=== PATIENT | male | born 1950 | race Caucasian/White ===

== ENCOUNTER 2019-12-21 14:38 | Outpatient (CLI) | payer OTHER, SELFPAY ==
--- NOTE | ~2019-12-21 | CT_ITS ---
EXAMINATION: CT lung screening EXAM DATE: 12/21/2019 15:12 INDICATION: Personal history of nicotine dependence. TECHNIQUE: Spiral low dose CT of the chest without contrast. Axial, coronal and sagittal images were reviewed. The dose-length product (DLP) for this examination was 167.43 mGy-cm. The exposure was t ailored according to patient size (auto mA exposure control), and iterative reconstruction (ASIR) was used as additional dose reduction technique. Comparison is made to prior examination from 04/10/2017. FINDINGS: There is moderate to severe apical paraseptal emphysema, bullous disease, mild to moderate emphysema at the lower lung zones. There is mild basilar intralobular septal thickening, appearance suspicious for mild interstitial lung disease. 3 mm right upper lobe nodule on axial image 46, stable . Tracheobronchial tree is patent. There is no mediastinal, hilar or axillary lymphadenopathy. T here are no pleural or pericardial effusions. There is no pneumothorax. Heart normal in size. T here is moderate coronary arterial calcification, arterial sclerosis. Compared to 2018, slightly mor e prominent interlobular septal thickening at the lung bases. Upper abdomen is unremarkable. There is thoracic spondylosis without osteoblastic or osteolytic lesions identified. IMPRESSION: Lung-RADS category 2, benign appearance or behavior (<1% chance of malignancy); recommend continued LDCT screening in 1 year. Reviewed, dictated and finalized at location B.
== END 2019-12-21 14:39 | disposition home or self-care (01) ==
PROVIDERS: PCP Internal Medicine; Visit Provider Nurse Practitioner
DX: Z12.2 Encounter for screening for malignant neoplasm of respiratory organs (principal); Z87.891 Personal history of nicotine dependence
CPT/HCPCS: G0297

== ENCOUNTER 2020-09-05 09:27 | Outpatient (CLI) | payer OTHER, SELFPAY ==
--- NOTE | ~2020-09-05 | US_ITS ---
EXAMINATION:US venous doppler LE LT INDICATION:Left lower leg pain TECHNIQUE: Multiple grayscale, color flow and Doppler images of the left lower extremity deep venous systems were obtained and reviewed. COMPARISON:No prior studies for comparison. FINDINGS: The common femoral, superficial femoral and popliteal veins demonstrate normal respiratory variation, augmentation and compressibility. Color flow is also seen within the posterior tibial, pe roneal, greater saphenous and profunda veins. IMPRESSION: 1: No lower extremity deep venous thrombosis. Reviewed, dictated and finalized at location B.
== END 2020-09-05 09:28 | disposition home or self-care (01) ==
PROVIDERS: PCP Internal Medicine; Visit Provider Nurse Practitioner
DX: M79.662 Pain in left lower leg (principal)
CPT/HCPCS: 93971

== ENCOUNTER 2020-11-04 04:19 | Day surgery (SDC) | payer OTHER, SELFPAY ==
[2020-11-04] VITALS (7 sets, daily range): BP systolic 119–155; BP diastolic 55–79; PULSE 70–93; RESP 17–21; TEMP 36.3; O2SAT 98–100
[2020-11-04] MEDS: HYOSCYAMINE SULFATE 0.125 MG TABLET SUBLINGUAL (04:58)
--- NOTE | 2020-11-04 05:40 | ED.GENADULT ---
HPI - General Adult General Chief complaint: Unspecified Stated complaint: meat stuck in throat Time Seen by Provider: 11/04/20 04:36 History of Present Illness HPI narrative: Patient is a 69-year-old male who presents ER with meat stuck in his throat. He is eating a piece of steak that became lodged around 7 PM. He reports he will have difficulty with swallowing spit and spit it back up. He has been able to sip on some water and get go down if he has it in small increments. He feels discomfort in the center of his throat. He has had this occur routinely in the past but can typically dislodge the food bolus. He has been unable to at this time. He has never had an EGD. Related Data Allergies Allergy/AdvReac Type Severity Reaction Status Date / Time fentanyl Allergy Mild numbness Verified 11/04/20 04:24 morphine Allergy Mild Unknown Verified 11/04/20 04:24 PENTAZOCINE LACTATE Allergy Mild STOMACH Uncoded 09/05/20 08:24 PAIN Review of Systems Review of Systems: All systems reviewed & are unremarkable except as noted in HPI and below Constitutional: Constitutional: Denies chills and Denies fever(s) ENT: Reports dysphagia, Denies neck pain and Denies sore throat Gastrointestinal: Gastrointestinal: Denies abdominal pain, Denies nausea and Denies vomiting PMFSH Past Medical History Medical History Chronic kidney disease, stage 3 Fatigue Insomnia Family History Family History Father Family history of lung cancer Family history of diabetes mellitus in first degree relative Diabetes mellitus Patient's father is in good health, Onset Age: 64 Grandparent Family history of malignant neoplasm of breast Mother Family history of osteoporosis Family history of diabetes mellitus in first degree relative Diabetes mellitus Cerebrovascular accident Sibling Patient's brother is in good health Social History Social History Smoking packs per day: 2 Smoking cigarettes per day: 40.0 Smoking status: Current every day smoker Tobacco type: cigarettes Alcohol intake: never Exam Narrative: GENERAL: Well-appearing, well-nourished, and in no acute distress. HEAD: Normocephalic, atraumatic. EYES: PERRL and EOMI. ENT: Mucous membranes moist. Normal-appearing posterior oropharynx. CHEST: Clear to auscultation. No respiratory distress. HEART: Regular rate and rhythm. Normal peripheral pulses. ABDOMEN: Soft, nontender, nondistended. EXTREMITIES: Normal range of motion. No edema. NEURO: Alert and oriented x3. Course Reevaluation(s) Reevaluation #1: No improvement with Levsin or Pepsi. Will contact GI. Date: 11/04/20 Time: 05:50 Reevaluation #2: Discussed with Dr. Doyle Dejesus. He plans to take patient to the endoscopy suite. We will keep n.p.o. Date: 11/04/20 Time: 06:17 Vital Signs Vital signs: Vital Signs Temperature 97.4 F L 11/04/20 04:21 Pulse Rate 93 11/04/20 04:21 Respiratory Rate 18 11/04/20 04:21 Blood Pressure 155/64 H 11/04/20 04:21 Pulse Oximetry 98 11/04/20 04:21 Temperature 97.4 F L 11/04/20 04:21 Pulse Rate 80 11/04/20 06:06 Respiratory Rate 17 11/04/20 06:06 Blood Pressure 139/79 11/04/20 06:06 Pulse Oximetry 100 11/04/20 06:06 Medical Decision Making Vital Signs Vital Signs: Vital Signs Temperature 97.4 F L 11/04/20 04:21 Pulse Rate 93 11/04/20 04:21 Respiratory Rate 18 11/04/20 04:21 Blood Pressure 155/64 H 11/04/20 04:21 Pulse Oximetry 98 11/04/20 04:21 Temperature 97.4 F L 11/04/20 04:21 Pulse Rate 80 11/04/20 06:06 Respiratory Rate 17 11/04/20 06:06 Blood Pressure 139/79 11/04/20 06:06 Pulse Oximetry 100 11/04/20 06:06 Discharge Plan Discharge Clinical Impression: Food impaction of esophagus Patient Disposition: Still
--- NOTE | 2020-11-04 06:51 | WPDANESEPP ---
Anes - Eval Pre Procedure Procedure: EGD Date/Time: 11/04/20 06:51 Surgeon: parisa Pre Op Diagnosis: meat stuck in throat Patient Data Age: 69 Gender: M Height: Weight: Last Vital Signs Temp 36.3 C L 11/04/20 04:21 Pulse 80 11/04/20 06:06 Resp 17 11/04/20 06:06 BP 139/79 11/04/20 06:06 Pulse Ox 100 11/04/20 06:06 Allergies Allergy/AdvReac Type Severity Reaction Status Date / Time fentanyl Allergy Mild numbness Verified 11/04/20 04:24 morphine Allergy Mild Unknown Verified 11/04/20 04:24 PENTAZOCINE LACTATE Allergy Mild STOMACH Uncoded 09/05/20 08:24 PAIN Home Medications Medication Instructions Recorded Confirmed Type insulin syringes (disposable) 1 mL #500 each 07/04/20 09/05/20 Rx insulin human U-100 NPH-regulr See Rx Instructions .ROUTE 07/11/20 09/05/20 Rx 70-30 mix 100 unit/mL subcutaneous .COMPLEX #30 ml susp pregabalin 150 mg capsule 150 mg PO TID #90 cap 07/30/20 09/05/20 Rx blood sugar diagnostic #200 each 08/22/20 09/05/20 Rx cholecalciferol (vitamin D3) 1,250 1,250 mcg PO .COMPLEX #7 cap 09/05/20 09/05/20 Rx mcg (50,000 unit) capsule hydrocodone 10 mg-acetaminophen 1 tablet PO Q8H PRN #90 tablet 09/12/20 Rx 325 mg tablet alprazolam 0.5 mg tablet 0.5 mg PO .COMPLEX PRN #90 tablet 10/05/20 Rx Patient hx anesthesia problems: none Family hx anesthesia problems: none PMFSH Past Medical History Medical History Chronic kidney disease, stage 3 Fatigue Insomnia Family History Family History Father Family history of lung cancer Family history of diabetes mellitus in first degree relative Diabetes mellitus Patient's father is in good health, Onset Age: 64 Grandparent Family history of malignant neoplasm of breast Mother Family history of osteoporosis Family history of diabetes mellitus in first degree relative Diabetes mellitus Cerebrovascular accident Sibling Patient's brother is in good health Social History Social History Smoking packs per day: 2 Smoking cigarettes per day: 40.0 Smoking status: Current every day smoker Tobacco type: cigarettes Alcohol intake: never Exam Day of Procedure 11/04/20 06:51
[2020-11-04] MEDS: LACTATED RINGERS 1,000 ML 150 ML IV CONT (07:30)
--- NOTE | 2020-11-04 07:37 | PM.HPGS ---
History of Present Illness History of Present Illness Consent: Risks, benefits, and alternatives have been discussed and questions answered. Patient agrees to proceed with procedure. Chief complaint: meat stuck in throat Narrative: Rick Garzon is a 69 year old male here with history of dysphagia but never had egd, last night could not eat anymore after having a piece of steak. He came to ER and despite medical treatment still unable to swallow. Review of Systems Constitutional: Constitutional: Denies headache(s) and Denies weakness Eyes: Eyes: Denies blurry vision ENT: Reports Normal hearing present, Denies headache(s) and Denies neck pain Cardiovascular: Cardiovascular: Denies chest pain and Denies dyspnea Respiratory: Respiratory: Denies dyspnea Gastrointestinal: Gastrointestinal: Reports no additional gastrointestinal complaints Genitourinary: Genitourinary: Denies dysuria Musculoskeletal: Musculoskeletal: Denies neck pain Integumentary/Breasts: Skin/Breast: Denies dry skin Neurologic: Reports Normal hearing present, Denies headache(s) and Denies weakness Psychiatric: Psychiatric: Denies anxiety Endocrine: Endocrine: Denies change in body appearance Hematologic/Lymphatic: Hematologic/Lymphatic: Denies easy bleeding Allergic/Immunologic: Allergic/Immunologic: Denies urticaria PMFSH Past Medical History Medical History Chronic kidney disease, stage 3 Fatigue Insomnia Family History Family History Father Family history of lung cancer Family history of diabetes mellitus in first degree relative Diabetes mellitus Patient's father is in good health, Onset Age: 64 Grandparent Family history of malignant neoplasm of breast Mother Family history of osteoporosis Family history of diabetes mellitus in first degree relative Diabetes mellitus Cerebrovascular accident Sibling Patient's brother is in good health Social History Social History Smoking packs per day: 2 Smoking cigarettes per day: 40.0 Smoking status: Current every day smoker Tobacco type: cigarettes Alcohol intake: never Meds Home Medications and Allergies Home Medications Medication Instructions Recorded Confirmed Type insulin syringes (disposable) 1 mL #500 each 07/04/20 09/05/20 Rx insulin human U-100 NPH-regulr See Rx Instructions .ROUTE 07/11/20 09/05/20 Rx 70-30 mix 100 unit/mL subcutaneous .COMPLEX #30 ml susp pregabalin 150 mg capsule 150 mg PO TID #90 cap 07/30/20 09/05/20 Rx blood sugar diagnostic #200 each 08/22/20 09/05/20 Rx cholecalciferol (vitamin D3) 1,250 1,250 mcg PO .COMPLEX #7 cap 09/05/20 09/05/20 Rx mcg (50,000 unit) capsule hydrocodone 10 mg-acetaminophen 1 tablet PO Q8H PRN #90 tablet 09/12/20 Rx 325 mg tablet alprazolam 0.5 mg tablet 0.5 mg PO .COMPLEX PRN #90 tablet 10/05/20 Rx Allergies Allergy/AdvReac Type Severity Reaction Status Date / Time fentanyl Allergy Mild numbness Verified 11/04/20 07:37 morphine Allergy Mild Unknown Verified 11/04/20 07:37 PENTAZOCINE LACTATE Allergy Mild STOMACH Uncoded 11/04/20 07:37 PAIN Vital Signs Vital Signs - 24 hr 11/04/20 04:21 11/04/20 06:06 11/04/20 07:16 Temperature 97.4 F L Pulse Rate 93 80 80 Respiratory Rate 18 17 20 Blood Pressure 155/64 H 139/79 119/60 Pulse Oximetry 98 100 100 11/04/20 07:18 Temperature Pulse Rate 80 Respiratory Rate 20 Blood Pressure 119/60 Pulse Oximetry 100 Exam Const: General: comfortable and no acute distress HENMT: General nose exam: Normal nares present Eyes: General: appearance normal, both eyes and all related structures Neck: Neck: no JVD Resp: Auscultation: clear to auscultation bilaterally Cardio: Rate: regular rate Rhythm: regular rhythm GI: Inspection: non-distended GI Palp:
--- NOTE | 2020-11-04 07:48 | WPDANESEPPF ---
Anes - Initial Pre Proc Eval Procedure: Operation Date: 11/04/20 07:30 Proposed Procedures p Esophagogastroduodenoscopy/Stent Removal - Parrish Messina MD Date/Time: 11/04/20 07:48 Surgeon: Parrish Messina MD Pre Op Diagnosis: meat stuck in throat Patient Data Age: 69 Gender: M Height: Weight: Last Vital Signs Temp 36.3 C L 11/04/20 04:21 Pulse 80 11/04/20 07:18 Resp 20 11/04/20 07:18 BP 119/60 11/04/20 07:18 Pulse Ox 100 11/04/20 07:18 Allergies Allergy/AdvReac Type Severity Reaction Status Date / Time fentanyl Allergy Mild numbness Verified 11/04/20 07:37 morphine Allergy Mild Unknown Verified 11/04/20 07:37 PENTAZOCINE LACTATE Allergy Mild STOMACH Uncoded 11/04/20 07:37 PAIN Home Medications Medication Instructions Recorded Confirmed Type insulin syringes (disposable) 1 mL #500 each 07/04/20 11/04/20 Rx insulin human U-100 NPH-regulr See Rx Instructions .ROUTE 07/11/20 11/04/20 Rx 70-30 mix 100 unit/mL subcutaneous .COMPLEX #30 ml susp pregabalin 150 mg capsule 150 mg PO TID #90 cap 07/30/20 11/04/20 Rx blood sugar diagnostic #200 each 08/22/20 11/04/20 Rx cholecalciferol (vitamin D3) 1,250 1,250 mcg PO .COMPLEX #7 cap 09/05/20 11/04/20 Rx mcg (50,000 unit) capsule hydrocodone 10 mg-acetaminophen 1 tablet PO Q8H PRN #90 tablet 09/12/20 11/04/20 Rx 325 mg tablet alprazolam 0.5 mg tablet 0.5 mg PO .COMPLEX PRN #90 tablet 10/05/20 11/04/20 Rx Patient hx anesthesia problems: none Family hx anesthesia problems: none PMFSH Past Medical History Medical History Chronic kidney disease, stage 3 Fatigue Insomnia Family History Family History Father Family history of lung cancer Family history of diabetes mellitus in first degree relative Diabetes mellitus Patient's father is in good health, Onset Age: 64 Grandparent Family history of malignant neoplasm of breast Mother Family history of osteoporosis Family history of diabetes mellitus in first degree relative Diabetes mellitus Cerebrovascular accident Sibling Patient's brother is in good health Social History Social History Smoking packs per day: 2 Smoking cigarettes per day: 40.0 Smoking status: Current every day smoker Tobacco type: cigarettes Alcohol intake: never Anes - Eval Final PreProcedure Day of Procedure 11/04/20 07:48 Patient weight: normal Heart: regular rate and rhythm Lungs: clear to auscultation Airway: Mallampati scale class II Neurological: alert and oriented Last oral intake: >/= 8 hours ASA classification: IV Emergent: yes Anesthetic plan: proceed Anesthesia type and monitoring: general GIVS Informed Consent: The patient's anesthetic plan of GIVS with possible ETT and its attendant risks and benefits were discussed in the GI suite prior to the start of this emergent procedure with the patient.Questions were solicited and answers provided to the satisfaction of the patient.
[2020-11-04 08:34] LABS: Glucose Point of Care 104 mg/dl (65-105)
== END 2020-11-04 08:48 | disposition home or self-care (01) ==
LOC: ANHED 06:17 → ANHSURGERY 06:29
PROVIDERS: Emergency Provider Emergency Medicine; PCP Internal Medicine; Visit Provider Internal Medicine Gastroenterology
PROC: 0DP08DZ Removal of Intraluminal Device from Upper Intestinal Tract, Via Natural or Artificial Opening Endoscopic (ICD-10-PCS; CPT 43247; principal; 2020-11-04 07:30)
DX: T18.128A Food in esophagus causing other injury, initial encounter (principal); K29.50 Unspecified chronic gastritis without bleeding; K20.90 Esophagitis, unspecified without bleeding; E11.22 Type 2 diabetes mellitus with diabetic chronic kidney disease; N18.30 Chronic kidney disease, stage 3 unspecified; Z79.4 Long term (current) use of insulin; G25.81 Restless legs syndrome; F17.210 Nicotine dependence, cigarettes, uncomplicated; Z79.899 Other long term (current) drug therapy; X58.XXXA Exposure to other specified factors, initial encounter
CPT/HCPCS: 43239; 43247; 82948; 88305; 88342; 99285; A9270; J2704; J7120

== ENCOUNTER → 2020-12-22 00:26 | Outpatient (CLI) | payer OTHER, SELFPAY ==
[2020-12-22 18:06] LABS: SARS-CoV-2 RNA PCR Negative
== END ==
PROVIDERS: PCP Internal Medicine; Visit Provider Internal Medicine Gastroenterology
DX: Z01.812 Encounter for preprocedural laboratory examination (principal); Z20.822 Contact with and (suspected) exposure to COVID-19
CPT/HCPCS: C9803; U0003; U0005

== ENCOUNTER 2020-12-26 00:33 | Day surgery (SDC) | payer OTHER, SELFPAY ==
[2020-12-12 15:36] VITALS: BMI 28.6
[2020-12-26 08:27] VITALS: BP 122/53; PULSE 73; RESP 18; TEMP 36.4; O2SAT 99
[2020-12-26] MEDS: LACTATED RINGERS 1,000 ML 150 ML IV CONT (08:37)
--- NOTE | 2020-12-26 08:37 | WPDANESEPPF ---
Anes - Initial Pre Proc Eval Procedure: Operation Date: 12/26/20 09:30 Proposed Procedures p Esophagogastroduodenoscopy - Parrish Messina MD Date/Time: 12/26/20 08:37 Surgeon: Parrish Messina MD Pre Op Diagnosis: esophagitis, gastritis Patient Data Age: 70 Gender: M Height: 1.69 m Weight: 81.1 kg Last Vital Signs Temp 36.4 C 12/26/20 08:27 Pulse 73 12/26/20 08:27 Resp 18 12/26/20 08:27 BP 122/53 L 12/26/20 08:27 Pulse Ox 99 12/26/20 08:27 Allergies Allergy/AdvReac Type Severity Reaction Status Date / Time fentanyl Allergy Mild numbness Verified 12/26/20 08:26 morphine Allergy Mild Unknown Verified 12/26/20 08:26 Xlyuxjj-[id number]-VzM Reductase AdvReac Intermediate Muscle Pain Verified 12/26/20 08:26 Inhibitor [Atuzmnb-Ztm-Fzs Reductase Inhibitor] PENTAZOCINE LACTATE Allergy Mild STOMACH Uncoded 12/26/20 08:26 PAIN Home Medications Medication Instructions Recorded Confirmed Type insulin syringes (disposable) 1 mL #500 each 07/04/20 11/04/20 Rx insulin human U-100 NPH-regulr See Rx Instructions .ROUTE 07/11/20 12/12/20 Rx 70-30 mix 100 unit/mL subcutaneous .COMPLEX #30 ml susp pregabalin 150 mg capsule 150 mg PO TID #90 cap 07/30/20 12/12/20 Rx blood sugar diagnostic #200 each 08/22/20 11/04/20 Rx cholecalciferol (vitamin D3) 1,250 1,250 mcg PO .COMPLEX #7 cap 09/05/20 12/12/20 Rx mcg (50,000 unit) capsule omeprazole 20 mg capsule,delayed 20 mg PO DAILY #30 cap 11/04/20 12/12/20 Rx release alprazolam 0.5 mg tablet 0.5 mg PO TID #90 tablet 12/14/20 12/26/20 Rx hydrocodone 10 mg-acetaminophen 1 tablet PO Q8H PRN #90 tablet 12/20/20 12/26/20 Rx 325 mg tablet Patient hx anesthesia problems: none Family hx anesthesia problems: none Results Review: All pre-operative results and documents have been reviewed as part of the pre-operative evaluation. [facility] Past Medical History Medical History Anxiety disorder Chronic bilateral low back pain without sciatica Chronic kidney disease, stage 3 Chronic narcotic use Chronic prescription benzodiazepine use COPD (chronic obstructive pulmonary disease) Depression Diabetes mellitus Diabetic polyneuropathy associated with type 2 diabetes mellitus Essential (primary) hypertension Fatigue Fibromyalgia Hyperlipidemia Insomnia Mixed hyperlipidemia Restless leg syndrome Tobacco use Family History Family History Father Family history of lung cancer Family history of diabetes mellitus in first degree relative Diabetes mellitus Patient's father is in good health, Onset Age: 64 Grandparent Family history of malignant neoplasm of breast Mother Family history of osteoporosis Family history of diabetes mellitus in first degree relative Diabetes mellitus Cerebrovascular accident Sibling Patient's brother is in good health Social History Social History Smoking packs per day: 2 Smoking cigarettes per day: 40.0 Years smoked: 58 Smoking pack-years: 116.00 Smoking status: Current every day smoker Tobacco type: cigarettes Alcohol intake: never Substance use: current Substance use type: marijuana Other substance usage details: Medical marijuana at . Living arrangements: alone Spiritual care concerns: No Anes - Eval Final PreProcedure Day of Procedure 12/26/20 08:37 Patient weight: overweight Heart: regular rate and rhythm Lungs: clear to auscultation and normal air movement Airway: Mallampati scale class II Neurological: alert and oriented Last oral intake: >/= 8 hours ASA classification: III Emergent: no Anesthetic plan: proceed Anesthesia type and monitoring: general GIVS Results Review: All pre-operative results and documents have been reviewed as part of the pre-operative evaluation. Informed Consent: The patient's anesthetic plan an
[2020-12-26 08:41] LABS: Glucose Point of Care 121 mg/dl (65-105)
--- NOTE | 2020-12-26 09:20 | PM.HPGS ---
History of Present Illness History of Present Illness Consent: Risks, benefits, and alternatives have been discussed and questions answered. Patient agrees to proceed with procedure. Chief complaint: esophagitis, gastritis Narrative: Rick Garzon is a 70 year old male with food bolus 10/2020 that required urgent EGD, here to reassess (now using omeprazole), had one episode of difficulty swallowing. Also he needs denture Review of Systems Constitutional: Constitutional: Denies headache(s) and Denies weakness Eyes: Eyes: Denies blurry vision ENT: Reports Normal hearing present, Denies headache(s) and Denies neck pain Cardiovascular: Cardiovascular: Denies chest pain and Denies dyspnea Respiratory: Respiratory: Denies dyspnea Gastrointestinal: Gastrointestinal: Reports no additional gastrointestinal complaints Genitourinary: Genitourinary: Denies dysuria Musculoskeletal: Musculoskeletal: Denies neck pain Integumentary/Breasts: Skin/Breast: Denies dry skin Neurologic: Reports Normal hearing present, Denies headache(s) and Denies weakness Psychiatric: Psychiatric: Denies anxiety Endocrine: Endocrine: Denies change in body appearance Hematologic/Lymphatic: Hematologic/Lymphatic: Denies easy bleeding Allergic/Immunologic: Allergic/Immunologic: Denies urticaria PMFSH Past Medical History Medical History Anxiety disorder Chronic bilateral low back pain without sciatica Chronic kidney disease, stage 3 Chronic narcotic use Chronic prescription benzodiazepine use COPD (chronic obstructive pulmonary disease) Depression Diabetes mellitus Diabetic polyneuropathy associated with type 2 diabetes mellitus Dysphagia Essential (primary) hypertension Fatigue Fibromyalgia Hyperlipidemia Insomnia Mixed hyperlipidemia Restless leg syndrome Tobacco use Family History Family History Father Family history of lung cancer Family history of diabetes mellitus in first degree relative Diabetes mellitus Patient's father is in good health, Onset Age: 64 Grandparent Family history of malignant neoplasm of breast Mother Family history of osteoporosis Family history of diabetes mellitus in first degree relative Diabetes mellitus Cerebrovascular accident Sibling Patient's brother is in good health Social History Social History Smoking packs per day: 2 Smoking cigarettes per day: 40.0 Years smoked: 58 Smoking pack-years: 116.00 Smoking status: Current every day smoker Tobacco type: cigarettes Alcohol intake: never Substance use: current Substance use type: marijuana Other substance usage details: Medical marijuana at . Living arrangements: alone Spiritual care concerns: No Meds Home Medications and Allergies Home Medications Medication Instructions Recorded Confirmed Type insulin syringes (disposable) 1 mL #500 each 07/04/20 11/04/20 Rx insulin human U-100 NPH-regulr See Rx Instructions .ROUTE 07/11/20 12/12/20 Rx 70-30 mix 100 unit/mL subcutaneous .COMPLEX #30 ml susp pregabalin 150 mg capsule 150 mg PO TID #90 cap 07/30/20 12/12/20 Rx blood sugar diagnostic #200 each 08/22/20 11/04/20 Rx cholecalciferol (vitamin D3) 1,250 1,250 mcg PO .COMPLEX #7 cap 09/05/20 12/12/20 Rx mcg (50,000 unit) capsule omeprazole 20 mg capsule,delayed 20 mg PO DAILY #30 cap 11/04/20 12/12/20 Rx release alprazolam 0.5 mg tablet 0.5 mg PO TID #90 tablet 12/14/20 12/26/20 Rx hydrocodone 10 mg-acetaminophen 1 tablet PO Q8H PRN #90 tablet 12/20/20 12/26/20 Rx 325 mg tablet Allergies Allergy/AdvReac Type Severity Reaction Status Date / Time fentanyl Allergy Mild numbness Verified 12/26/20 08:26 morphine Allergy Mild Unknown Verified 12/26/20 08:26 Zssirps-YQJ-QyM Reductase AdvReac Intermediate Muscle Pain Verified 12/26/20 08:26 Inhibitor [Xdrkqce-Brd-Rkr Reductas
[2020-12-26] MEDS: BENZOCAINE (*SP) 60 ML SPRAY CAN (HURRICAINE) 1 SPRAY MUCOUS MEM (09:24)
[2020-12-26 09:39] VITALS: BP 106/49; PULSE 58; RESP 17; O2SAT 100
[2020-12-26 09:49] VITALS: BP 105/56; PULSE 62; RESP 25; O2SAT 100
[2020-12-26 09:58] LABS: Glucose Point of Care 116 mg/dl (65-105)
[2020-12-26 09:59] VITALS: BP 124/69; PULSE 64; RESP 24; O2SAT 100
== END 2020-12-26 10:15 | disposition home or self-care (01) ==
PROVIDERS: PCP Internal Medicine; Visit Provider Internal Medicine Gastroenterology
PROC: 0DJ08ZZ Inspection of Upper Intestinal Tract, Via Natural or Artificial Opening Endoscopic (ICD-10-PCS; CPT 43235; principal; 2020-12-26 09:30)
DX: R13.10 Dysphagia, unspecified (principal); K29.50 Unspecified chronic gastritis without bleeding; K20.80 Other esophagitis without bleeding; K02.9 Dental caries, unspecified; I12.9 Hypertensive chronic kidney disease with stage 1 through stage 4 chronic kidney disease, or unspecified chronic kidney disease; N18.30 Chronic kidney disease, stage 3 unspecified; E11.22 Type 2 diabetes mellitus with diabetic chronic kidney disease; E11.42 Type 2 diabetes mellitus with diabetic polyneuropathy; J44.9 Chronic obstructive pulmonary disease, unspecified; M79.7 Fibromyalgia; E78.2 Mixed hyperlipidemia; G25.81 Restless legs syndrome; F41.8 Other specified anxiety disorders; F17.210 Nicotine dependence, cigarettes, uncomplicated; Z79.4 Long term (current) use of insulin; F12.90 Cannabis use, unspecified, uncomplicated
CPT/HCPCS: 43239; 43248; 82948; 88305; 88342; C9803; J7120; U0003; U0005

== ENCOUNTER 2020-12-28 16:41 | Emergency (ER) | payer OTHER, SELFPAY ==
[2020-12-28 16:52] VITALS: BP 130/57; PULSE 76; RESP 20; TEMP 36.4; O2SAT 99
[2020-12-28 16:54] VITALS: BP 130/57; PULSE 76; RESP 20; TEMP 36.4; O2SAT 99
--- NOTE | 2020-12-28 17:04 | ED.EAR ---
HPI - Ear Problem General Chief complaint: Ear Stated complaint: ears clogged Time Seen by Provider: 12/28/20 17:05 Source: patient Mode of arrival: ambulatory Limitations: no limitations History of Present Illness HPI Narrative: Rick Garzon is a 70 yo male with a PMH of anxiety, HTN, high cholesterol, diabetes, chronic pain, GERD, who comes here with difficulty hearing out of his left ear and some on his right. States is been going on for a few days. He cannot remember what the name is that said was useful for this problem Related Data Allergies Allergy/AdvReac Type Severity Reaction Status Date / Time fentanyl Allergy Mild numbness Verified 12/28/20 16:51 morphine Allergy Mild Unknown Verified 12/28/20 16:51 Zctfjqb-NKK-IzL Reductase AdvReac Intermediate Muscle Pain Verified 12/28/20 16:51 Inhibitor [Qzlgqma-Pjd-Cyj Reductase Inhibitor] PENTAZOCINE LACTATE Allergy Mild STOMACH Uncoded 12/28/20 16:51 PAIN Review of Systems Review of Systems: CONSTITUTIONAL: Denies fever, chills, sweats. EYES: Denies visual changes, redness, discharge. ENT: Denies rhinorrhea, congestion, sore throat, bilateral otalgia. CARDIOVASCULAR: Denies chest pain, palpitations, edema. RESPIRATORY: Denies dyspnea, wheezing, cough GASTROINTESTINAL: Denies abdominal pain, nausea, vomiting, diarrhea. GENITOURINARY: Denies dysuria, hematuria, abnormal discharge SKIN: Denies rash or itching. NEUROLOGIC: Denies numbness, or focal weakness. PSYCHIATRIC: Denies anxiety or depression. PMFSH Past Medical History Medical History Anxiety disorder Chronic bilateral low back pain without sciatica Chronic kidney disease, stage 3 Chronic narcotic use Chronic prescription benzodiazepine use COPD (chronic obstructive pulmonary disease) Depression Diabetes mellitus Diabetic polyneuropathy associated with type 2 diabetes mellitus Dysphagia Essential (primary) hypertension Fatigue Fibromyalgia Hyperlipidemia Insomnia Mixed hyperlipidemia Restless leg syndrome Tobacco use Family History Family History Father Family history of lung cancer Family history of diabetes mellitus in first degree relative Diabetes mellitus Patient's father is in good health, Onset Age: 64 Grandparent Family history of malignant neoplasm of breast Mother Family history of osteoporosis Family history of diabetes mellitus in first degree relative Diabetes mellitus Cerebrovascular accident Sibling Patient's brother is in good health Social History Social History Smoking packs per day: 2 Smoking cigarettes per day: 40.0 Years smoked: 58 Smoking pack-years: 116.00 Smoking status: Current every day smoker Tobacco type: cigarettes Alcohol intake: never Substance use: current Substance use type: marijuana Other substance usage details: Medical marijuana at . Spiritual care concerns: No Comments At time of signature, I agree with nursing past medical, surgical, social and family history. There is no relevant family history pertinent to the presenting complaint. Patient has history of HTN Exam Narrative: GENERAL: This is a well-nourished, well-developed patient, in mild distress. HEAD: normocephalic, atraumatic. EYES: Sclera clear/white. Vision is grossly intact. EARS: External ears normal, auditory canals erythema, edema and left canal, and without drainage, TMs normal without perforation. Hearing grossly intact. NOSE: External nose normal without nasal discharge, nares without redness, no rhinorrhea. THROAT: Mucous membranes moist, NECK: Neck supple, CARDIOVASCULAR: Regular rate and rhythm without murmurs, gallops, or rubs. RESPIRATORY: Clear to auscultation. Breath sounds equal bilaterally. No wheezes, rales, or rhonchi. GASTROINTESTINAL: Abdomen soft, SKIN: warm, intact with no suspicious lesions or r
== END 2020-12-28 17:28 | disposition home or self-care (01) ==
PROVIDERS: Emergency Provider Nurse Practitioner; PCP Internal Medicine
DX: H92.02 Otalgia, left ear (principal); H66.003 Acute suppurative otitis media without spontaneous rupture of ear drum, bilateral; F17.210 Nicotine dependence, cigarettes, uncomplicated; I12.9 Hypertensive chronic kidney disease with stage 1 through stage 4 chronic kidney disease, or unspecified chronic kidney disease; E11.22 Type 2 diabetes mellitus with diabetic chronic kidney disease; N18.30 Chronic kidney disease, stage 3 unspecified; J44.9 Chronic obstructive pulmonary disease, unspecified; E11.42 Type 2 diabetes mellitus with diabetic polyneuropathy; M79.7 Fibromyalgia; E78.2 Mixed hyperlipidemia; G25.81 Restless legs syndrome; F41.9 Anxiety disorder, unspecified; Z79.4 Long term (current) use of insulin
CPT/HCPCS: 99213; G0463

== ENCOUNTER → 2021-02-02 07:51 | Outpatient (CLI) | payer OTHER, SELFPAY ==
[2021-02-02 18:14] LABS: SARS-CoV-2 RNA PCR Negative
== END ==
PROVIDERS: PCP Internal Medicine
DX: Z01.812 Encounter for preprocedural laboratory examination (principal); Z20.822 Contact with and (suspected) exposure to COVID-19
CPT/HCPCS: C9803; U0003; U0005

== ENCOUNTER 2022-12-11 13:31 | Inpatient (IN) | payer OTHER, SELFPAY ==
[2022-12-11] VITALS (23 sets, daily range): BP systolic 122–150; BP diastolic 57–66; PULSE 80–99; RESP 16–32; TEMP 35.9–36.7; O2SAT 88–100; BMI 20.4
--- NOTE | ~2022-12-11 | XR_ITS ---
EXAMINATION: XR chest 1V portable INDICATION: Coarse lung zones TECHNIQUE: Portable AP chest at 2246 hours COMPARISON: CTs dated 12/21/2019 and 12/11/2022 FINDINGS: There are confluent airspace opacities in the lung apices with areas of cavitation. No pleu ral effusion is identified. The heart size is normal. IMPRESSION: 1. Multifocal cavitary pneumonia of the lung apices. Reviewed, dictated and finalized at location F.
--- NOTE | ~2022-12-11 | CT_ITS ---
EXAMINATION: CTA BRAIN/CAROTID DATE: 12/11/2022 14:31 INDICATION: Right-sided weakness TECHNIQUE: Computed tomographic angiography (CTA) of the head and neck was performed with 100 mL Omni paque-350 intravenous contrast. Multiplanar reconstructions and maximum intensity projection 3D-recon structions of the carotid arteries and of the intracranial arteries were created by the technologist on a separate workstation. Precontrast CT of the head was also obtained. Automated exposure control and iterative reconstruction technique were employed.The dose-length product was 1847.65 mGy-cm. COMPARISON: None. FINDINGS: Carotid arteries: Visualized aortic arch is normal in caliber with nonhemodynamically significant atherosclerotic plaqu e and no dissection. Additional nonhemodynamically significant atherosclerotic plaque at the great ve ssels arising from the aortic arch. There is 25% stenosis of the right carotid bulb relative to jaida l distal artery lumen diameter (NASCET criteria). There is a large amount of calcified atheroscleroti c plaque at the bifurcation of the left carotid artery and left carotid bulb, the latter with what ap pears to be near occlusion stenosis. Bilateral vertebral arteries appear codominant with severe >70% stenosis at the origins of both arteries. Severe emphysema in the visualized upper lungs. There are p atchy areas of consolidation and thickened septal line thickening primarily in the bilateral upper lo bes but extending also into the lingula and bilateral lower lobes. In the bilateral upper lungs the c ystic lung disease has coalesced into larger cavitary lesions with irregular thickened tejeda. Mild ce rvical and mild to moderate upper thoracic spondylosis. Head: There is a large region of cytotoxic edema involving significant portion of the right frontal, pariet al and temporal lobes and extending into the intervening insula and left basal ganglia consistent wit h a likely acute or subacute infarct involving the left middle cerebral artery vascular distribution. Additional small old lacunar infarcts in the bilateral basal ganglia and in the white matter of the bilateral frontal lobe centrum semiovale. Moderate scattered white matter hypoattenuation consistent with chronic small vessel ischemic disease. No acute intracranial hemorrhage or abnormal extra axial fluid collection. Ventricles are normal and symmetric. No mass/mass effect. Mild mucosal thickening t he paranasal sinuses. There are thickened sclerotic tejeda of the bilateral maxillary sinuses consiste nt with sequela of chronic pancreatitis. Small likely postoperative defect in the medial tejeda of bot h the left and right maxillary sinuses. Small left mastoid effusion. Changes of bilateral intraocular lens replacement. Intracranial arteries Small amount of nonhemodynamically significant atherosclerotic plaque at the bilateral carotid siphon s. There is no hemodynamically significant stenosis in the vertebral, basilar and internal carotid ar teries. Vertebral arteries are codominant. There are no aneurysms identified. Both A1 and P1 segment s are patent. There is also a patent anterior communicating artery. Very subtle enhancement is seen e xtending peripheral to a a 4 mm long central filling defect at the distal left M1 segment immediately prior to the bifurcation which is suspicious for thrombus. There is increased prominence of the more peripheral cerebral arteries in the region of the infarcted left middle cerebral artery vascular dis tribution likely representing secondary luxury perfusion. No abnormally enhancing brain lesions ident ified. IMPRESSION: 1. Likely acute infarct involving the left middle cerebral artery vascular distribution, likely throm boembolic in etiology with 4 mm long currently nonocclusive central filling defect at the distal M1 s egment and with secondary luxury perfusion in the region of infarct. 2. 25% stenosis of the
--- NOTE | 2022-12-11 13:33 | ECG_ITS ---
Measurements Intervals [place] Rate: 78 P: 149 KS: 139 QRS: -30 QRSD: 118 T: 148 QT: 391 QTc: 447 Interpretive Statements ECTOPIC ATRIAL RHYTHM MISSING LEAD II POSSIBLE LEFT ATRIAL ENLARGEMENT INCOMPLETE RIGHT BUNDLE BRANCH BLOCK LEFT VENTRICULAR HYPERTROPHY AND ST-T CHANGE MINIMAL Q WAVES- HIGH LATERAL LEADS CANNOT RULE OUT SEPTAL INFARCT, AGE INDETERMINATE ABNORMAL ECG NO PREVIOUS ECG AVAILABLE FOR COMPARISON Electronically Signed On 12-11-2022 13:53:16 CDT by Jj Cervantes D.O.
[2022-12-11 13:55] LABS: Basophils Percent Auto 0.2 % (0.2-1.2); Hematocrit 41.3 % (42.0-52.0); Hemoglobin 12.3 g/dL (14.0-18.0); Immature Granulocyte Absolute 0.13 K/mm3 (0.00-0.031); Immature Granulocyte Percent A 0.9 % (0-0.5); Mean Corpuscular HGB Conc 29.8 g/dl (32-36); Mean Corpuscular Hemoglobin 26.5 pg (26-34); Mean Platelet Volume 8.7 fl (7.4-10.4); Monocytes Absolute Auto 0.8 K/mm3 (0.1-0.6); Monocytes Percent Auto 5.3 % (2.6-8.5); Neutrophils Percent Auto 91.6 % (45.5-73.1); Platelet Count Result 575 k/mm3 (150-375); Red Blood Count 4.64 M/mm3 (4.6-6.20); Red Cell Distribution Width 15.5 % (11.5-14.5); White Blood Count 15.2 K/mm3 (4.5-10.0)
[2022-12-11 13:57] LABS: Glucose Point of Care 481 mg/dl (65-105)
[2022-12-11 14:03] LABS: Appearance Urine Cloudy (Clear); Bacteria Urine 4+ /hpf; Bilirubin Urine Negative (Negative); Blood Urine 1+ (Negative); Color Urine Yellow (Yellow); Glucose Urine UA 3+ mg/dL (Negative); Ketones Urine 1+ mg/dL (Negative); Leukocyte Esterase Ur 2+ LEU/UL (Negative); Nitrate Urine Negative (Negative); Non Pathogenic Casts 0-2; Protein Urine 1+ mg/dL (Negative); RBC Urine 0-2 /hpf (0-2); Specific Grav Ur 1.025 (1.001-1.035); Squamous Epithelial Cell Urine None seen /hpf (Few); Urobilinogen Urine 0.2 mg/dL (<2.0); WBC Urine >100 /hpf
[2022-12-11 14:07] LABS: INR 1.2; Partial Thromboplastin Time 26.2 SECONDS (22.3-36.8); Prothrombin Time 15.2 Seconds (11.1-14.7)
[2022-12-11 14:17] LABS: Alanine Aminotransferase 28 U/L (6-50); Albumin Level 3.9 g/dL (3.5-5.1); Alkaline Phosphatase 118 U/L (38-126); Anion Gap 14 mmol/L (8-16); Aspartate Amino Transferase 56 U/L (17-59); Bilirubin,Total 0.6 mg/dL (0.2-1.3); Blood Urea Nitrogen 38 mg/dL (9-20); Calcium 9.5 mg/dL (8.4-10.2); Carbon Dioxide 22 mmol/L (22-30); Chloride 97 mmol/L (98-107); Estimated CRCL calculation 32 ml/min; Estimated Glomerular Filt Rate 43; Glucose 565 mg/dL (65-110); Potassium 4.6 mmol/L (3.4-5.0); Sodium 133 mmol/L (137-145)
[2022-12-11 14:26] LABS: Add Urine Microscopic? YES
[2022-12-11 14:45] LABS: Platelet Estimate Adequate (Adequate); Schistocytes None Seen (NORMAL)
[2022-12-11 14:46] LABS: Burr Cells 1+ (NORMAL); Hypochromasia 1+ (NORMAL)
--- NOTE | 2022-12-11 14:58 | ED.AMS ---
HPI - Altered Mental Status General Chief Complaint: Altered Mental Status Stated Complaint: ams Time Seen by Provider: 12/11/22 14:11 History of Present Illness HPI narrative: Patient is a 71-year-old male who presents ER with altered mental status. He has not been seen for 2 days. He was found down on the ground looking to the left side by family today. Patient has history of left lower extremity BKA last revision in July of this year. Patient is known to be diabetic with CKD. At this time patient is nonverbal. Related Data Allergies Allergy/AdvReac Type Severity Reaction Status Date / Time fentanyl Allergy Mild numbness Verified 10/29/22 11:31 morphine Allergy Mild Unknown Verified 10/29/22 11:31 Dgzmmzb-GDQ-LhO Reductase AdvReac Intermediate Muscle Pain Verified 10/29/22 11:31 Inhibitor [Wqmvzpp-Pux-Wgo Reductase Inhibitor] PENTAZOCINE LACTATE Allergy Mild STOMACH Uncoded 10/29/22 11:31 PAIN Review of Systems Review of Systems: ROS unobtainable: Yes unobtainable due to medical condition PMFSH Past Medical History Medical History Anxiety disorder Chronic bilateral low back pain without sciatica Chronic kidney disease, stage 3 Chronic narcotic use Chronic prescription benzodiazepine use COPD (chronic obstructive pulmonary disease) Depression Diabetes mellitus Diabetic polyneuropathy associated with type 2 diabetes mellitus Dysphagia Essential (primary) hypertension Fatigue Fibromyalgia Hyperlipidemia Insomnia Lung cancer Mixed hyperlipidemia Prostate cancer Restless leg syndrome Tobacco use Family History Family History Father Family history of lung cancer Family history of diabetes mellitus in first degree relative Diabetes mellitus Patient's father is in good health, Onset Age: 64 Grandparent Family history of malignant neoplasm of breast Mother Family history of osteoporosis Family history of diabetes mellitus in first degree relative Diabetes mellitus Cerebrovascular accident Sibling Patient's brother is in good health Social History Social History (Updated 10/29/22 @ 11:36 by Ellen Nation [facility]) Smoking packs per day: 2 Smoking cigarettes per day: 40.0 Years smoked: 58 Smoking pack-years: 116.00 Smoking status: Current every day smoker Tobacco type: cigarettes Alcohol intake: never Substance use: current Substance use type: marijuana Other substance usage details: Medical marijuana at hs. Lack of Transportation: No Lack of Food: Never True Current Housing: I Have Housing Concerned About Future Housing: No Difficulty Paying Gas/Electric Bills: No Difficulty Paying for Meds: No Currently Unemployed: No Education: Associate Degree Difficulty w/ Childcare or Family Care: No Living arrangements: alone Spiritual care concerns: No Exam Narrative: GENERAL: Chronically ill-appearing, well-nourished, and in mild acute distress. HEAD: Normocephalic, atraumatic. EYES: PERRL and leftward gaze. ENT: Dry mucous membranes.. NECK: Supple. CHEST: Clear to auscultation. No respiratory distress. HEART: Regular rate and rhythm. Normal peripheral pulses. ABDOMEN: Soft, nontender, nondistended. EXTREMITIES: Weakness on the right side. Left BKA. SKIN: Warm, dry, no rash. NEURO: See NIH stroke scale. Patient can use his right leg to cross his leg to the left side however is flaccid with drift testing. Right upper extremity flaccidity. Difficult to tell if patient has facial droop as he follows commands poorly in regards to facial muscle function. He does have leftward gaze and cannot move it past the midline. Patient is awake and alert and intermittently follows commands. Course Course Emergency Course: I had a discussion with Dr. Sanford at [facility] in regards to patient's significant CVA. Patient is not a candidate for mechanical thrombectomy. I discuss
[2022-12-11 15:40] LABS: Creatine Kinase 1347 U/L (55-170)
--- NOTE | 2022-12-11 16:01 | PC.NURSE ---
this RN noticed pt was 85% on room air. Placed on 4L NC at this time
[2022-12-11] MEDS: SODIUM CHLORIDE 0.9% IV 1,000 ML 150 ML IV CONT (16:26)
[2022-12-11] MEDS: INSULIN HUMAN REGULAR (*BKC) 100 UNITS/ML 6 UNITS IV PUSH (17:45)
[2022-12-11] MEDS: SODIUM CHLORIDE 0.9% IV 1,000 ML 999 ML IV CONT (17:45)
[2022-12-11 17:54] LABS: Glucose Point of Care 456 mg/dl (65-105)
[2022-12-11 18:17] LABS: Glucose Point of Care 392 mg/dl (65-105)
--- NOTE | 2022-12-11 18:36 | ADMGEN ---
This patient, Rick Garzon, was admitted to Medical Room 246-01. Patient/family oriented to hospital policies and general routines including ID bracelet, bed and alarms, visiting hours, pain management, procedures, bathroom and other care routines, personal items, smoking policy, room service/diet, and visiting hours. Information on how to activate the Rapid Response Team has been discussed. Patient/Family are encouraged to report perceived risks to care and to ask questions if they do not understand what they are told or what they should do.
--- NOTE | 2022-12-11 19:58 | PM.IMHP ---
H&P: HPI History of Present Illness Date/Time: 12/11/22 19:58 Chief Complaint: Extremity Weakness, AMS Narrative: 71 y/o M presents here with new neuro deficits and AMS with PMH of CKD, COPD, DM, HTN, HLD, Lung Cancer w/brain mets, Prostate Cancer s/p prostatectomy (2009), RLS, and chronic low back pain. Patient with last known normal on Thursday (12/09), seen by daughter without deficits. Found today at home on the floor with gaze deviation, non-verbal, and RUE/RLE weakness. Currently living at home alone. Per daughter there was some concern for a small stroke 1-2 months ago, patient reported decreased dexterity in 1 of his hands unclear which side. No treatment sought due to patient believing it may be related to neuropathy. History obtained from daughterDali. Review of Systems Review of Systems: All systems reviewed & are unremarkable except as noted in HPI and below PMFSH Past Medical History Medical History Anxiety disorder Chronic bilateral low back pain without sciatica Chronic kidney disease, stage 3 Chronic narcotic use Chronic prescription benzodiazepine use COPD (chronic obstructive pulmonary disease) Depression Diabetes mellitus Diabetic polyneuropathy associated with type 2 diabetes mellitus Dysphagia Essential (primary) hypertension Fatigue Fibromyalgia Hyperlipidemia Insomnia Lung cancer Mixed hyperlipidemia Prostate cancer Restless leg syndrome Tobacco use Family History Family History Father Family history of lung cancer Family history of diabetes mellitus in first degree relative Diabetes mellitus Patient's father is in good health, Onset Age: 64 Grandparent Family history of malignant neoplasm of breast Mother Family history of osteoporosis Family history of diabetes mellitus in first degree relative Diabetes mellitus Cerebrovascular accident Sibling Patient's brother is in good health Social History Social History (Updated 10/29/22 @ 11:36 by Ellen Nation CMA) Smoking packs per day: 2 Smoking cigarettes per day: 40.0 Years smoked: 58 Smoking pack-years: 116.00 Smoking status: Current every day smoker Alcohol intake: unknown Substance use: unknown Substance use type: unknown Other substance usage details: Medical marijuana at hs. Lack of Transportation: No Lack of Food: Never True Current Housing: I Have Housing Concerned About Future Housing: No Difficulty Paying Gas/Electric Bills: No Difficulty Paying for Meds: No Currently Unemployed: No Education: Associate Degree Difficulty w/ Childcare or Family Care: No Living arrangements: alone Spiritual care concerns: No Meds Home Medications and Allergies Home Medications Medication Instructions Recorded Confirmed Type insulin syringes (disposable) 1 mL #500 ea 11/26/21 10/29/22 Rx albuterol sulfate 90 mcg/actuation 1 inh inhalation Q4H PRN shortness 08/28/22 10/29/22 Rx aerosol inhaler of breath or wheezing #6.7 grams blood sugar diagnostic (Contour See Rx Instructions .Route 08/28/22 10/29/22 Rx Next Test Strips) .COMPLEX #200 ea pregabalin 150 mg capsule (Lyrica) 150 mg PO TID #90 caps 10/21/22 10/29/22 Rx varenicline 1 mg tablet 1 mg PO BID #180 tabs 10/23/22 10/29/22 Rx dapagliflozin propanediol 10 mg 10 mg PO DAILY #90 tabs 10/29/22 10/29/22 Rx tablet (Farxiga) dulaglutide 0.75 mg/0.5 mL 0.75 mg (0.5 mL) subcut WEEKLY #1 10/29/22 10/29/22 Rx subcutaneous pen injector mL ([employer]) flash glucose scanning reader #1 ea 10/29/22 10/29/22 Rx (FreeStyle Pillo 2 [place]) flash glucose sensor (FreeStyle #1 ea 11/07/22 Rx Pillo 2 Sensor kit) pravastatin 20 mg tablet 20 mg PO QHS #90 tabs 11/18/22 Rx alprazolam 0.5 mg tablet 0.5 mg PO QHS #90 tabs 11/25/22 Rx glimepiride 2 mg tablet 2 mg PO QAM #30 tabs 12/01/22 Rx hydrocodone 10 mg-acetaminophen 1 tablet PO Q8H PRN pain #90 tabs
[2022-12-11 21:30] LABS: Glucose Point of Care 322 mg/dl (65-105)
[2022-12-11] MEDS: INSULIN GLARGINE (*BKC) 100 UNITS/ML 25 UNITS SUB-Q (23:26)
[2022-12-11 23:29] LABS: Glucose Point of Care 308 mg/dl (65-105)
[2022-12-12] VITALS: PULSE 87
[2022-12-12 04:00] VITALS: PULSE 81
[2022-12-12 05:54] LABS: Glucose Point of Care 216 mg/dl (65-105)
[2022-12-12 06:13] LABS: Basophils Percent Auto 0.2 % (0.2-1.2); Hematocrit 32.7 % (42.0-52.0); Immature Granulocyte Absolute 0.06 K/mm3 (0.00-0.031); Immature Granulocyte Percent A 0.5 % (0-0.5); Lymphocytes Absolute Auto 0.35 K/mm3 (0.9-3.2); Lymphocytes Percent Auto 3.1 % (18.3-44.2); Mean Corpuscular HGB Conc 30.6 g/dl (32-36); Mean Corpuscular Hemoglobin 26.5 pg (26-34); Mean Corpuscular Volume 86.5 fl (80-100); Mean Platelet Volume 8.5 fl (7.4-10.4); Monocytes Absolute Auto 0.7 K/mm3 (0.1-0.6); Monocytes Percent Auto 5.9 % (2.6-8.5); Neutrophils Absolute Auto 10.2 K/mm3 (1.3-6.7); Neutrophils Percent Auto 90.3 % (45.5-73.1); Platelet Count Result 529 k/mm3 (150-375); Red Blood Count 3.78 M/mm3 (4.6-6.20); Red Cell Distribution Width 15.9 % (11.5-14.5); White Blood Count 11.3 K/mm3 (4.5-10.0)
[2022-12-12 06:28] LABS: Anion Gap 5 mmol/L (8-16); Blood Urea Nitrogen 35 mg/dL (9-20); Calcium 8.8 mg/dL (8.4-10.2); Carbon Dioxide 27 mmol/L (22-30); Chloride 107 mmol/L (98-107); Creatine Kinase 793 U/L (55-170); Estimated CRCL calculation 36 ml/min; Estimated Glomerular Filt Rate 50; Glucose 222 mg/dL (65-110); Potassium 3.8 mmol/L (3.4-5.0); Sodium 139 mmol/L (137-145)
[2022-12-12 06:50] VITALS: BP 149/64; PULSE 68; RESP 16; TEMP 36.8; O2SAT 99
[2022-12-12] MEDS: AZITHROMYCIN 500 MG/NS 250 ML 500 MG/250 ML BAG 250 MG IVPB (07:31)
[2022-12-12 08:00] VITALS: PULSE 90
[2022-12-12 08:02] LABS: Hypochromasia 1+ (NORMAL); Ovalocytes 1+ (NORMAL); Platelet Estimate Increased (Adequate); Schistocytes None Seen (NORMAL)
[2022-12-12 08:12] LABS: Glucose Point of Care 216 mg/dl (65-105)
--- NOTE | 2022-12-12 08:57 | PCPTNOTE ---
Spoke with hospitalist Lucila Nagel who agreed to pt coming off bedrest to participate in skilled therapy. Will make RN aware.
--- NOTE | 2022-12-12 09:35 | WPDNEURCNPN ---
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 Chronic kidney disease stage: stage 3 (moderate) Chronic kidney disease stage 3 subtype: stage 3a (GFR 45-59) Qualified Code(s): E11.22 - Type 2 diabetes mellitus with diabetic chronic kidney disease; N18.31 - Chronic kidney disease, stage 3a; Z79.4 - local company intermodal truck driver (current) use of insulin Code(s): E11.22 - Type 2 diabetes mellitus with diabetic chronic kidney disease Status: Acute (5) Tobacco abuse: Code(s): Z72.0 - Tobacco use Status: Acute (6) Mixed hyperlipidemia: Code(s): E78.2 - Mixed hyperlipidemia Status: Acute (7) Essential (primary) hypertension: Code(s): I10 - Essential (primary) hypertension Status: Acute Plan Rick Garzon is a 71 year old male with a history of diabetes, chronic kidneys disease, hyperlipidemia, chronic smoking, and lung cancer presenting with right sided weakness, aphasia, and left gaze preference, found to have left MCA territory infarcts. Given extensive nature of the stroke, patient is at risk for edema and hemorrhagic conversion. I did discuss with family that given the size and distribution of stroke, prognosis is very poor any significant, meaningful recovery is very unlikely. - If family elects for comfort care -- additional testing listed below is not needed - MRI brain - CT head for any change in mental status - Allow for permissive HTN for first 24 hrs, but maintain less than <220/120 - Start Aspirin 81mg daily -- if unable to take by mouth, can give aspirin suppository - Plavix 75mg daily x 3 months if able to take PO - Surface echocardiogram - Continue pravastatin 20mg daily Consult date: 12/12/22 Reason for consult: Acute stroke HPI: Rick Garzon is a 71 year old male with a history of diabetes, chronic kidneys disease, hyperlipidemia, chronic smoking, and lung cancer presenting with altered mental status. Patient was found down on 12/11 by family. His last known well was two days prior to this date. When patient was found he was non verbal with left gaze deviation. He was brought to [place] ED where he had notable right sided weakness, aphasia, and left gaze preference. His NIH score was 25. Blood pressure was in the 120s systolic. CT/CTA of the head and neck showed likely acute infarct involving L MCA distribution, likely thromboembolic in etiology with 4mm long nonocclusive central filling defect at distal M1 segment , 25% stenosis of the right carotid bulb, likely near occlusion of the left carotid bulb, severe >70% stenosis at the origins of the codominant bilateral vertebral arteries, a few small old lacunar infarcts in bilateral basal ganglia and centrum semiovale. The case was discussed by ER physician with U stroke provider. Patient was not a candidate for thrombectomy or tPA given the timing of his symptoms. Patient's UA was concerning for UTI. His glucose was in the 500s as well. The case was discussed by the ER physician with family. Family decided that patient is DNR and that they would not want any aggressive life saving efforts in the event that he would deteriorate. He is not currently on any antiplatelets nor was he taking any at home. He does take pravastatin 20mg daily. His most recent LDL was 50 and most recent A1c is 8.4 -- both from about a month ago. Blood pressure during admission has ranged from the 120-150s systolic. Patient's sister in law and daughter are at bedside. Patient failed bedside swallow assessment.
--- NOTE | 2022-12-12 10:46 | PCSTNOTE ---
Bedside swallowing evaluation completed. Patient seen in bed with head of bed elevated. Not able to stay alert with verbal and tactile cues. Attempted to open mouth and to protrude tongue on request, but unable to coordinate movement to achieve target. Droplet of water to tongue via spoon along with verbal and tactile cues did not trigger any purposeful oral movement or swallowing. Patient produced delayed cough (approximately 30 seconds) after droplet of water. Based on the results of this evaluation it is recommended that this patient remain NPO at this time. Thank you for the referral of this patient.
--- NOTE | 2022-12-12 11:17 | PCPTNOTE ---
Attempted PT evaluation, Pt's family refused therapy stating they do not want the pt agitated today. RN aware. Will follow.
--- NOTE | 2022-12-12 11:32 | PCOTNOTE ---
Attempted OT evaluation, Pt's family refused therapy stating they do not want the pt agitated today. RN aware. Will follow.
[2022-12-12 12:17] LABS: Glucose Point of Care 178 mg/dl (65-105)
--- NOTE | 2022-12-12 12:23 | P.PNIM_ITS ---
Progress Note: A&P Assessment and Plan (1) Acute CVA (cerebrovascular accident): Code(s): I63.9 - Cerebral infarction, unspecified Status: Acute Assessment and Plan: initial NIHSS in ED was 25. * Last known well on (12/09) at 3/4 pm * CT impression: Likely acute infarct involving the left middle cerebral artery vascular distribution * ED provider spoke with [facility] - patient is not candidate for TPA or thrombectomy * neuro consulted - Magnus KEATING * care coordination consulted for placement and hospice care * Speech therapy consulted and recommended NPO status * Comfort measures initiated - p.r.n. Ativan and morphine * Zofran PRN (2) Rhabdomyolysis: Code(s): M62.82 - Rhabdomyolysis Status: Acute Assessment and Plan: * CK - 1347, 793 * fluid resuscitation with 1L NS, now 150 ml/hr (3) Acute UTI: Code(s): N39.0 - Urinary tract infection, site not specified Status: Acute Assessment and Plan: UA: Cloudy, 1+ protein, 3+ glucose, 1+ ketones, 1+ blood, 2+ leuks, greater than 100 WBC, 4+ bacteria * UC pending * Ceftriaxone 1G started in ED, continue Q12 * trend CBC 12/12 discontinue treatment due to patient going on to hospice. (4) Diabetes mellitus with chronic kidney disease: Qualifiers: Chronic kidney disease stage: stage 3 (moderate) Chronic kidney disease stage 3 subtype: stage 3a (GFR 45-59) Diabetes mellitus landscape crew leader insulin use: with alf use Diabetes mellitus type: type 2 Qualified Code(s): E11.22 - Type 2 diabetes mellitus with diabetic chronic kidney disease; N18.31 - Chronic kidney disease, stage 3a; Z79.4 - [facility] (current) use of insulin Code(s): E11.22 - Type 2 diabetes mellitus with diabetic chronic kidney disease Status: Acute Assessment and Plan: initial glucose - 565 on BMP. current 322 @2100. * 6 units of regular insulin given in ED * Hypoglycemia protocol * POC blood glucose q6h (5) Pneumonia: Code(s): J18.9 - Pneumonia, unspecified organism Status: Acute Assessment and Plan: Chest x-ray showing multifocal cavitary pneumonia of the lung apices. CTA revealing bilateral multifocal pneumonia of the upper lungs. * Started on ceftriaxone and azithromycin. * Continue to monitor a.m. labs. 12/12 Discontinue treatment due to patient going on to hospice. (6) Urinary retention: Code(s): R33.9 - Retention of urine, unspecified Status: Acute Assessment and Plan: After mass in the abdomen was palpated and patient appeared uncomfortable bladder scan was performed and yielded 1000 mL of urine. * Urinary catheter was placed. * Retention could be due to UTI. Plan Chronic Conditions - hold all home medications due to risk for aspiration and inability to follow commands. see above for DM management. Subjective Date/time seen: 12/12/22 12:23 Interval history: Patient nonverbal and unable to follow commands. Right-sided weakness in the upper lower extremities was 0/5 strength. Discussed hospice with family members. The power of photo stylist has opted to go comfort measures with the patient. Have discussed in length risks and benefits of this. Patient's power of photo stylist has decided to discontinue IV fluids and IV antibiotics. They have decided to move forward with hospice and have given verbal consent to change patient to comfort measures. They wish to honor the patient's wishes.
--- NOTE | 2022-12-12 12:23 | PM.IMPN ---
Progress Note: A&P Assessment and Plan (1) Acute CVA (cerebrovascular accident): Code(s): I63.9 - Cerebral infarction, unspecified Status: Acute Assessment and Plan: initial NIHSS in ED was 25. Last known well on (12/09) at 3/[address] impression: Likely acute infarct involving the left middle cerebral artery vascular distribution ED provider spoke with [facility] - patient is not candidate for TPA or thrombectomy neuro consulted - Magnus KEATING care coordination consulted for placement and hospice care Speech therapy consulted and recommended NPO status Comfort measures initiated - p.r.n. Ativan and morphine Zofran PRN (2) Rhabdomyolysis: Code(s): M62.82 - Rhabdomyolysis Status: Acute Assessment and Plan: CK - 1347, 793 fluid resuscitation with 1L NS, now 150 ml/hr (3) Acute UTI: Code(s): N39.0 - Urinary tract infection, site not specified Status: Acute Assessment and Plan: UA: Cloudy, 1+ protein, 3+ glucose, 1+ ketones, 1+ blood, 2+ leuks, greater than 100 WBC, 4+ bacteria UC pending Ceftriaxone 1G started in ED, continue Q12 trend CBC 12/12 discontinue treatment due to patient going on to hospice. (4) Diabetes mellitus with chronic kidney disease: Qualifiers: Chronic kidney disease stage: stage 3 (moderate) Chronic kidney disease stage 3 subtype: stage 3a (GFR 45-59) Diabetes mellitus buttermaker insulin use: with buttermaker use Diabetes mellitus type: type 2 Qualified Code(s): E11.22 - Type 2 diabetes mellitus with diabetic chronic kidney disease; N18.31 - Chronic kidney disease, stage 3a; Z79.4 - [facility] (current) use of insulin Code(s): E11.22 - Type 2 diabetes mellitus with diabetic chronic kidney disease Status: Acute Assessment and Plan: initial glucose - 565 on BMP. current 322 @2100. 6 units of regular insulin given in ED Hypoglycemia protocol POC blood glucose q6h (5) Pneumonia: Code(s): J18.9 - Pneumonia, unspecified organism Status: Acute Assessment and Plan: Chest x-ray showing multifocal cavitary pneumonia of the lung apices. CTA revealing bilateral multifocal pneumonia of the upper lungs. Started on ceftriaxone and azithromycin. Continue to monitor a.m. labs. 12/12 Discontinue treatment due to patient going on to hospice. (6) Urinary retention: Code(s): R33.9 - Retention of urine, unspecified Status: Acute Assessment and Plan: After mass in the abdomen was palpated and patient appeared uncomfortable bladder scan was performed and yielded 1000 mL of urine. Urinary catheter was placed. Retention could be due to UTI. Plan Chronic Conditions - hold all home medications due to risk for aspiration and inability to follow commands. see above for DM management. Subjective Date/time seen: 12/12/22 12:23 Interval history: Patient nonverbal and unable to follow commands. Right-sided weakness in the upper lower extremities was 0/5 strength. Discussed hospice with family members. The power of contract attorney has opted to go comfort measures with the patient. Have discussed in length risks and benefits of this. Patient's power of contract attorney has decided to discontinue IV fluids and IV antibiotics. They have decided to move forward with hospice and have given verbal consent to change patient to comfort measures. They wish to honor the patient's wishes. Exam Narrative: GENERAL: Comfortable, no acute distress HENMT: moist mucous membranes EYES: Conjunctivitis in right eye RESPIRATORY: clear to auscultation CARDIO: RRR GI: Bowel sounds present, left upper lower quadrant abdomem soft and nontender. right side of the abdomen hard and a softball like mass protruding from the abdomen that patient flinched at when palpating. SKIN: no rashes EXTREMITIES: no edema, redness or tenderness Objective Data Vital Sign
[2022-12-12] MEDS: MORPHINE SULFATE (*CRX) 2 MG/ML INJ IV PUSH (13:44)
[2022-12-12 14:50] VITALS: BP 134/56; PULSE 87; RESP 16; TEMP 36.1; O2SAT 99
--- NOTE | 2022-12-12 16:47 | PCOTNOTE ---
Pt. transitioning to hospice care. Cancelation of therapy orders
[2022-12-12 17:17] LABS: Glucose Point of Care 157 mg/dl (65-105)
[2022-12-12 22:17] VITALS: BP 138/52; PULSE 81; RESP 16; TEMP 36.6; O2SAT 99
[2022-12-13] MEDS: MORPHINE SULFATE (*CRX) 2 MG/ML INJ IV PUSH ×2 (12:24→17:04)
--- NOTE | 2022-12-13 12:31 | P.PNIM_ITS ---
Progress Note: A&P Assessment and Plan (1) Acute CVA (cerebrovascular accident): Code(s): I63.9 - Cerebral infarction, unspecified Status: Acute Assessment and Plan: initial NIHSS in ED was 25. * Last known well on (12/09) at 3/4 pm * CT impression: Likely acute infarct involving the left middle cerebral artery vascular distribution * ED provider spoke with [facility] - patient is not candidate for TPA or thrombectomy * neuro consulted - Magnus KEATING * care coordination consulted for placement and hospice care * Speech therapy consulted and recommended NPO status * Comfort measures initiated - p.r.n. Ativan and morphine * Zofran PRN (2) Rhabdomyolysis: Code(s): M62.82 - Rhabdomyolysis Status: Acute Assessment and Plan: * CK - 1347, 793 * fluid resuscitation with 1L NS, now 150 ml/hr (3) Acute UTI: Code(s): N39.0 - Urinary tract infection, site not specified Status: Acute Assessment and Plan: UA: Cloudy, 1+ protein, 3+ glucose, 1+ ketones, 1+ blood, 2+ leuks, greater than 100 WBC, 4+ bacteria * UC pending * Ceftriaxone 1G started in ED, continue Q12 * trend CBC 12/12 discontinue treatment due to patient going on to hospice. (4) Diabetes mellitus with chronic kidney disease: Qualifiers: Diabetes mellitus type: type 2 Diabetes mellitus terminal worker insulin use: with terminal worker use Chronic kidney disease stage: stage 3 (moderate) Chronic kidney disease stage 3 subtype: stage 3a (GFR 45-59) Qualified Code(s): E11.22 - Type 2 diabetes mellitus with diabetic chronic kidney disease; N18.31 - Chronic kidney disease, stage 3a; Z79.4 - [facility] (current) use of insulin Code(s): E11.22 - Type 2 diabetes mellitus with diabetic chronic kidney disease Status: Acute Assessment and Plan: initial glucose - 565 on BMP. current 322 @2100. * 6 units of regular insulin given in ED * Hypoglycemia protocol * POC blood glucose q6h (5) Pneumonia: Code(s): J18.9 - Pneumonia, unspecified organism Status: Acute Assessment and Plan: Chest x-ray showing multifocal cavitary pneumonia of the lung apices. CTA revealing bilateral multifocal pneumonia of the upper lungs. * Started on ceftriaxone and azithromycin. * Continue to monitor a.m. labs. 12/12 Discontinue treatment due to patient going on to hospice. (6) Urinary retention: Code(s): R33.9 - Retention of urine, unspecified Status: Acute Assessment and Plan: After mass in the abdomen was palpated and patient appeared uncomfortable bladder scan was performed and yielded 1000 mL of urine. * Urinary catheter was placed. * Retention could be due to UTI. Plan Chronic Conditions - hold all home medications due to risk for aspiration and inability to follow commands. see above for DM management. Subjective Date/time seen: 12/13/22 12:31 Interval history: Comfort measures. Awaiting placement to half-way to continue hospice care. Exam Narrative: GENERAL: Comfortable, no acute distress EYES: Conjunctivitis in right eye RESPIRATORY: clear to auscultation CARDIO: RRR GI: Bowel sounds present, nontender SKIN: no rashes EXTREMITIES: no edema, redness or tenderness; Left leg [id number] amputation Objective Data Vital Signs Vital Signs: Vital Signs - 24 hr
--- NOTE | 2022-12-13 12:31 | PM.IMPN ---
Progress Note: A&P Assessment and Plan (1) Acute CVA (cerebrovascular accident): Code(s): I63.9 - Cerebral infarction, unspecified Status: Acute Assessment and Plan: initial NIHSS in ED was 25. Last known well on (12/09) at 3/[address] impression: Likely acute infarct involving the left middle cerebral artery vascular distribution ED provider spoke with [facility] - patient is not candidate for TPA or thrombectomy neuro consulted - Magnus KEATING care coordination consulted for placement and hospice care Speech therapy consulted and recommended NPO status Comfort measures initiated - p.r.n. Ativan and morphine Zofran PRN (2) Rhabdomyolysis: Code(s): M62.82 - Rhabdomyolysis Status: Acute Assessment and Plan: CK - 1347, 793 fluid resuscitation with 1L NS, now 150 ml/hr (3) Acute UTI: Code(s): N39.0 - Urinary tract infection, site not specified Status: Acute Assessment and Plan: UA: Cloudy, 1+ protein, 3+ glucose, 1+ ketones, 1+ blood, 2+ leuks, greater than 100 WBC, 4+ bacteria UC pending Ceftriaxone 1G started in ED, continue Q12 trend CBC 12/12 discontinue treatment due to patient going on to hospice. (4) Diabetes mellitus with chronic kidney disease: Qualifiers: Diabetes mellitus type: type 2 Diabetes mellitus terminal system operator insulin use: with terminal system operator use Chronic kidney disease stage: stage 3 (moderate) Chronic kidney disease stage 3 subtype: stage 3a (GFR 45-59) Qualified Code(s): E11.22 - Type 2 diabetes mellitus with diabetic chronic kidney disease; N18.31 - Chronic kidney disease, stage 3a; Z79.4 - custodial (current) use of insulin Code(s): E11.22 - Type 2 diabetes mellitus with diabetic chronic kidney disease Status: Acute Assessment and Plan: initial glucose - 565 on BMP. current 322 @2100. 6 units of regular insulin given in ED Hypoglycemia protocol POC blood glucose q6h (5) Pneumonia: Code(s): J18.9 - Pneumonia, unspecified organism Status: Acute Assessment and Plan: Chest x-ray showing multifocal cavitary pneumonia of the lung apices. CTA revealing bilateral multifocal pneumonia of the upper lungs. Started on ceftriaxone and azithromycin. Continue to monitor a.m. labs. 12/12 Discontinue treatment due to patient going on to hospice. (6) Urinary retention: Code(s): R33.9 - Retention of urine, unspecified Status: Acute Assessment and Plan: After mass in the abdomen was palpated and patient appeared uncomfortable bladder scan was performed and yielded 1000 mL of urine. Urinary catheter was placed. Retention could be due to UTI. Plan Chronic Conditions - hold all home medications due to risk for aspiration and inability to follow commands. see above for DM management. Subjective Date/time seen: 12/13/22 12:31 Interval history: Comfort measures. Awaiting placement to care home to continue hospice care. Exam Narrative: GENERAL: Comfortable, no acute distress EYES: Conjunctivitis in right eye RESPIRATORY: clear to auscultation CARDIO: RRR GI: Bowel sounds present, nontender SKIN: no rashes EXTREMITIES: no edema, redness or tenderness; Left leg [id number] amputation Objective Data Vital Signs Vital Signs: Vital Signs - 24 hr 12/12/22 14:50 12/12/22 22:17 12/13/22 08:05 Temperature 97.0 F L 97.8 F Pulse Rate 87 81 Respiratory Rate 16 16 Blood Pressure 134/56 L 138/52 L Pulse Oximetry 99 99 Oxygen Delivery Room Air Intake/Output Intake/Output: Intake & Output 12/10/22 12/11/22 12/12/22 12/13/22 23:59 23:59 23:59 23:59 Intake Total 1000 0 0 Output Total 2049 650 Balance 1000 -2049 -650 Meds/Results Medications: Active Medications Generic Name Dose Route Start Last Admin Trade Name Freq PRN Reason Stop Dose Admin Acetaminophen 650 mg 12/12/22 13
[2022-12-13 14:00] VITALS: BP 129/59; PULSE 108; RESP 18; TEMP 35.9; O2SAT 94
[2022-12-13] MEDS: ATROPINE SULFATE 1% OPHTH SOLN 5 ML BOTTLE 1 DROP SUBLINGUAL (16:42)
[2022-12-13 21:45] VITALS: BP 125/60; PULSE 109; RESP 16; TEMP 37.7; O2SAT 89
[2022-12-14 06:32] VITALS: TEMP 38.4
[2022-12-14 06:51] VITALS: TEMP 38.4
[2022-12-14] MEDS: ACETAMINOPHEN 650 MG SUPPOSITORY RECTAL (06:51)
[2022-12-14] MEDS: ATROPINE SULFATE 1% OPHTH SOLN 5 ML BOTTLE 1 DROP SUBLINGUAL (07:35)
[2022-12-14] MEDS: MORPHINE SULFATE (*CRX) 2 MG/ML INJ IV PUSH ×3 (07:35→14:13)
--- NOTE | 2022-12-14 12:28 | P.PNIM_ITS ---
Progress Note: A&P Assessment and Plan (1) Acute CVA (cerebrovascular accident): Code(s): I63.9 - Cerebral infarction, unspecified Status: Acute Assessment and Plan: initial NIHSS in ED was 25. * Last known well on (12/09) at 3/4 pm * CT impression: Likely acute infarct involving the left middle cerebral artery vascular distribution * ED provider spoke with [facility] - patient is not candidate for TPA or thrombectomy * neuro consulted - Magnus KEATING * care coordination consulted for placement and hospice care * Speech therapy consulted and recommended NPO status * Comfort measures initiated - p.r.n. Ativan and morphine * Zofran PRN (2) Rhabdomyolysis: Code(s): M62.82 - Rhabdomyolysis Status: Acute Assessment and Plan: * CK - 1347, 793 * fluid resuscitation with 1L NS, now 150 ml/hr (3) Acute UTI: Code(s): N39.0 - Urinary tract infection, site not specified Status: Acute Assessment and Plan: UA: Cloudy, 1+ protein, 3+ glucose, 1+ ketones, 1+ blood, 2+ leuks, greater than 100 WBC, 4+ bacteria * UC pending * Ceftriaxone 1G started in ED, continue Q12 * trend CBC 12/12 discontinue treatment due to patient going on to hospice. (4) Diabetes mellitus with chronic kidney disease: Qualifiers: Diabetes mellitus type: type 2 Diabetes mellitus termite control service representative insulin use: with termite control service representative use Chronic kidney disease stage: stage 3 (moderate) Chronic kidney disease stage 3 subtype: stage 3a (GFR 45-59) Qualified Code(s): E11.22 - Type 2 diabetes mellitus with diabetic chronic kidney disease; N18.31 - Chronic kidney disease, stage 3a; Z79.4 - [facility] (current) use of insulin Code(s): E11.22 - Type 2 diabetes mellitus with diabetic chronic kidney disease Status: Acute Assessment and Plan: initial glucose - 565 on BMP. current 322 @2100. * 6 units of regular insulin given in ED * Hypoglycemia protocol * POC blood glucose q6h (5) Pneumonia: Code(s): J18.9 - Pneumonia, unspecified organism Status: Acute Assessment and Plan: Chest x-ray showing multifocal cavitary pneumonia of the lung apices. CTA revealing bilateral multifocal pneumonia of the upper lungs. * Started on ceftriaxone and azithromycin. * Continue to monitor a.m. labs. 12/12 Discontinue treatment due to patient going on to hospice. (6) Urinary retention: Code(s): R33.9 - Retention of urine, unspecified Status: Acute Assessment and Plan: After mass in the abdomen was palpated and patient appeared uncomfortable bladder scan was performed and yielded 1000 mL of urine. * Urinary catheter was placed. * Retention could be due to UTI. Plan Chronic Conditions - hold all home medications due to risk for aspiration and inability to follow commands. see above for DM management. Subjective Date/time seen: 12/14/22 12:28 Interval history: Patient remains stable. On comfort measures. Awaiting placement. Exam Narrative: GENERAL: Comfortable, no acute distress EYES: Conjunctivitis in right eye RESPIRATORY: clear to auscultation CARDIO: RRR GI: Bowel sounds present, nontender SKIN: no rashes EXTREMITIES: no edema, redness or tenderness; Left leg [id number] amputation Objective Data Vital Signs Vital Signs: Vital Signs - 24 hr
--- NOTE | 2022-12-14 12:28 | PM.IMPN ---
Progress Note: A&P Assessment and Plan (1) Acute CVA (cerebrovascular accident): Code(s): I63.9 - Cerebral infarction, unspecified Status: Acute Assessment and Plan: initial NIHSS in ED was 25. Last known well on (12/09) at 3/[address] impression: Likely acute infarct involving the left middle cerebral artery vascular distribution ED provider spoke with [facility] - patient is not candidate for TPA or thrombectomy neuro consulted - Magnus KEATING care coordination consulted for placement and hospice care Speech therapy consulted and recommended NPO status Comfort measures initiated - p.r.n. Ativan and morphine Zofran PRN (2) Rhabdomyolysis: Code(s): M62.82 - Rhabdomyolysis Status: Acute Assessment and Plan: CK - 1347, 793 fluid resuscitation with 1L NS, now 150 ml/hr (3) Acute UTI: Code(s): N39.0 - Urinary tract infection, site not specified Status: Acute Assessment and Plan: UA: Cloudy, 1+ protein, 3+ glucose, 1+ ketones, 1+ blood, 2+ leuks, greater than 100 WBC, 4+ bacteria UC pending Ceftriaxone 1G started in ED, continue Q12 trend CBC 12/12 discontinue treatment due to patient going on to hospice. (4) Diabetes mellitus with chronic kidney disease: Qualifiers: Diabetes mellitus type: type 2 Diabetes mellitus wire fence erector insulin use: with wire fence erector use Chronic kidney disease stage: stage 3 (moderate) Chronic kidney disease stage 3 subtype: stage 3a (GFR 45-59) Qualified Code(s): E11.22 - Type 2 diabetes mellitus with diabetic chronic kidney disease; N18.31 - Chronic kidney disease, stage 3a; Z79.4 - longterm (current) use of insulin Code(s): E11.22 - Type 2 diabetes mellitus with diabetic chronic kidney disease Status: Acute Assessment and Plan: initial glucose - 565 on BMP. current 322 @2100. 6 units of regular insulin given in ED Hypoglycemia protocol POC blood glucose q6h (5) Pneumonia: Code(s): J18.9 - Pneumonia, unspecified organism Status: Acute Assessment and Plan: Chest x-ray showing multifocal cavitary pneumonia of the lung apices. CTA revealing bilateral multifocal pneumonia of the upper lungs. Started on ceftriaxone and azithromycin. Continue to monitor a.m. labs. 12/12 Discontinue treatment due to patient going on to hospice. (6) Urinary retention: Code(s): R33.9 - Retention of urine, unspecified Status: Acute Assessment and Plan: After mass in the abdomen was palpated and patient appeared uncomfortable bladder scan was performed and yielded 1000 mL of urine. Urinary catheter was placed. Retention could be due to UTI. Plan Chronic Conditions - hold all home medications due to risk for aspiration and inability to follow commands. see above for DM management. Subjective Date/time seen: 12/14/22 12:28 Interval history: Patient remains stable. On comfort measures. Awaiting placement. Exam Narrative: GENERAL: Comfortable, no acute distress EYES: Conjunctivitis in right eye RESPIRATORY: clear to auscultation CARDIO: RRR GI: Bowel sounds present, nontender SKIN: no rashes EXTREMITIES: no edema, redness or tenderness; Left leg [id number] amputation Objective Data Vital Signs Vital Signs: Vital Signs - 24 hr 12/13/22 14:00 12/13/22 20:00 12/13/22 21:45 Temperature 96.7 F L 99.9 F H Pulse Rate 108 H 109 H Respiratory Rate 18 16 Blood Pressure 129/59 L 125/60 Pulse Oximetry 94 89 L Oxygen Delivery Room Air 12/14/22 06:32 12/14/22 06:51 12/14/22 08:10 Temperature 101.1 F H 101.1 F H Pulse Rate Respiratory Rate Blood Pressure Pulse Oximetry Oxygen Delivery Room Air Intake/Output Intake/Output: Intake & Output 12/11/22 12/12/22 12/13/22 12/14/22 23:59 23:59 23:59 23:59 Intake Total 1000 0 0 0 Output Total 2049 1250 550 Balance 1000 -20
[2022-12-14 14:00] VITALS: BP 99/47; PULSE 100; RESP 17; TEMP 36.2; O2SAT 86
[2022-12-14] MEDS: LORazepam INJ (*CRX) 2 MG/ML VIAL 1 MG IV PUSH (14:13)
[2022-12-14 19:33] VITALS: BP 128/55; PULSE 115; RESP 24; TEMP 36.4; O2SAT 83
[2022-12-15 03:53] VITALS: BP 127/55; PULSE 117; RESP 30; TEMP 36.1; O2SAT 92
[2022-12-15 08:09] LABS: Glucose Point of Care 215 mg/dl (65-105)
[2022-12-15 10:01] VITALS: BP 126/52; PULSE 110; RESP 38; TEMP 36.3; O2SAT 94
[2022-12-15] MEDS: LORazepam INJ (*CRX) 2 MG/ML VIAL 1 MG IV PUSH ×2 (10:30→16:45)
[2022-12-15] MEDS: SCOPOLAMINE 1.5 MG PATCH TRANSDERM (10:30)
[2022-12-15] MEDS: MORPHINE SULFATE (*CRX) 2 MG/ML INJ IV PUSH ×2 (10:30→21:18)
--- NOTE | 2022-12-15 11:23 | P.PNIM_ITS ---
Progress Note: A&P Assessment and Plan (1) Acute CVA (cerebrovascular accident): Code(s): I63.9 - Cerebral infarction, unspecified Status: Acute Assessment and Plan: initial NIHSS in ED was 25. * Last known well on (12/09) at 3/4 pm * CT impression: Likely acute infarct involving the left middle cerebral artery vascular distribution * ED provider spoke with [facility] - patient is not candidate for TPA or thrombectomy * neuro consulted - Magnus KEATING * care coordination consulted for placement and hospice care * Speech therapy consulted and recommended NPO status * Comfort measures initiated - p.r.n. Ativan and morphine * Zofran PRN (2) Rhabdomyolysis: Code(s): M62.82 - Rhabdomyolysis Status: Acute Assessment and Plan: * CK - 1347, 793 * fluid resuscitation with 1L NS, now 150 ml/hr (3) Acute UTI: Code(s): N39.0 - Urinary tract infection, site not specified Status: Acute Assessment and Plan: UA: Cloudy, 1+ protein, 3+ glucose, 1+ ketones, 1+ blood, 2+ leuks, greater than 100 WBC, 4+ bacteria * UC pending * Ceftriaxone 1G started in ED, continue Q12 * trend CBC 12/12 discontinue treatment due to patient going on to hospice. (4) Diabetes mellitus with chronic kidney disease: Qualifiers: Diabetes mellitus type: type 2 Diabetes mellitus termite control technician insulin use: with termite control technician use Chronic kidney disease stage: stage 3 (moderate) Chronic kidney disease stage 3 subtype: stage 3a (GFR 45-59) Qualified Code(s): E11.22 - Type 2 diabetes mellitus with diabetic chronic kidney disease; N18.31 - Chronic kidney disease, stage 3a; Z79.4 - custodial (current) use of insulin Code(s): E11.22 - Type 2 diabetes mellitus with diabetic chronic kidney disease Status: Acute Assessment and Plan: initial glucose - 565 on BMP. current 322 @2100. * 6 units of regular insulin given in ED * Hypoglycemia protocol * POC blood glucose q6h (5) Pneumonia: Code(s): J18.9 - Pneumonia, unspecified organism Status: Acute Assessment and Plan: Chest x-ray showing multifocal cavitary pneumonia of the lung apices. CTA revealing bilateral multifocal pneumonia of the upper lungs. * Started on ceftriaxone and azithromycin. * Continue to monitor a.m. labs. 12/12 Discontinue treatment due to patient going on to hospice. (6) Urinary retention: Code(s): R33.9 - Retention of urine, unspecified Status: Acute Assessment and Plan: After mass in the abdomen was palpated and patient appeared uncomfortable bladder scan was performed and yielded 1000 mL of urine. * Urinary catheter was placed. * Retention could be due to UTI. Plan Chronic Conditions - hold all home medications due to risk for aspiration and inability to follow commands. see above for DM management. Subjective Date/time seen: 12/15/22 11:23 Interval history: Waiting on patient's family to pick a assisted for him to discharge to. Continue comfort measures. Exam Narrative: GENERAL: Comfortable, no acute distress EYES: Conjunctivitis in right eye RESPIRATORY: clear to auscultation CARDIO: RRR GI: Bowel sounds present, nontender SKIN: no rashes EXTREMITIES: no edema, redness or tenderness; Left leg [id number] amputation Objective Data Vital Signs Vital Signs:
--- NOTE | 2022-12-15 11:23 | PM.IMPN ---
Progress Note: A&P Assessment and Plan (1) Acute CVA (cerebrovascular accident): Code(s): I63.9 - Cerebral infarction, unspecified Status: Acute Assessment and Plan: initial NIHSS in ED was 25. Last known well on (12/09) at 3/[address] impression: Likely acute infarct involving the left middle cerebral artery vascular distribution ED provider spoke with [facility] - patient is not candidate for TPA or thrombectomy neuro consulted - Magnus KEATING care coordination consulted for placement and hospice care Speech therapy consulted and recommended NPO status Comfort measures initiated - p.r.n. Ativan and morphine Zofran PRN (2) Rhabdomyolysis: Code(s): M62.82 - Rhabdomyolysis Status: Acute Assessment and Plan: CK - 1347, 793 fluid resuscitation with 1L NS, now 150 ml/hr (3) Acute UTI: Code(s): N39.0 - Urinary tract infection, site not specified Status: Acute Assessment and Plan: UA: Cloudy, 1+ protein, 3+ glucose, 1+ ketones, 1+ blood, 2+ leuks, greater than 100 WBC, 4+ bacteria UC pending Ceftriaxone 1G started in ED, continue Q12 trend CBC 12/12 discontinue treatment due to patient going on to hospice. (4) Diabetes mellitus with chronic kidney disease: Qualifiers: Diabetes mellitus type: type 2 Diabetes mellitus rat exterminator insulin use: with rat exterminator use Chronic kidney disease stage: stage 3 (moderate) Chronic kidney disease stage 3 subtype: stage 3a (GFR 45-59) Qualified Code(s): E11.22 - Type 2 diabetes mellitus with diabetic chronic kidney disease; N18.31 - Chronic kidney disease, stage 3a; Z79.4 - FDC (current) use of insulin Code(s): E11.22 - Type 2 diabetes mellitus with diabetic chronic kidney disease Status: Acute Assessment and Plan: initial glucose - 565 on BMP. current 322 @2100. 6 units of regular insulin given in ED Hypoglycemia protocol POC blood glucose q6h (5) Pneumonia: Code(s): J18.9 - Pneumonia, unspecified organism Status: Acute Assessment and Plan: Chest x-ray showing multifocal cavitary pneumonia of the lung apices. CTA revealing bilateral multifocal pneumonia of the upper lungs. Started on ceftriaxone and azithromycin. Continue to monitor a.m. labs. 12/12 Discontinue treatment due to patient going on to hospice. (6) Urinary retention: Code(s): R33.9 - Retention of urine, unspecified Status: Acute Assessment and Plan: After mass in the abdomen was palpated and patient appeared uncomfortable bladder scan was performed and yielded 1000 mL of urine. Urinary catheter was placed. Retention could be due to UTI. Plan Chronic Conditions - hold all home medications due to risk for aspiration and inability to follow commands. see above for DM management. Subjective Date/time seen: 12/15/22 11:23 Interval history: Waiting on patient's family to pick a senior living for him to discharge to. Continue comfort measures. Exam Narrative: GENERAL: Comfortable, no acute distress EYES: Conjunctivitis in right eye RESPIRATORY: clear to auscultation CARDIO: RRR GI: Bowel sounds present, nontender SKIN: no rashes EXTREMITIES: no edema, redness or tenderness; Left leg [id number] amputation Objective Data Vital Signs Vital Signs: Vital Signs - 24 hr 12/14/22 14:00 12/14/22 19:33 12/15/22 03:53 Temperature 97.1 F L 97.6 F 97.0 F L Pulse Rate 100 115 H 117 H Respiratory Rate 17 24 H 30 H Blood Pressure 99/47 L 128/55 L 127/55 L Pulse Oximetry 86 L 83 L 92 12/15/22 10:01 Temperature 97.4 F L Pulse Rate 110 H Respiratory Rate 38 H Blood Pressure 126/52 L Pulse Oximetry 94 Intake/Output Intake/Output: Intake & Output 12/12/22 12/13/22 12/14/22 12/15/22 23:59 23:59 23:59 23:59 Intake Total 0 0 0 0 Output Total 2049 1250 550 150 Balance -2049 -1250 -550 -150 Meds/Re
[2022-12-15 22:04] VITALS: BP 116/49; PULSE 110; RESP 30; TEMP 37.7; O2SAT 94
[2022-12-16] MEDS: MORPHINE SULFATE (*CRX) 2 MG/ML INJ IV PUSH (09:04)
[2022-12-16] MEDS: LORazepam INJ (*CRX) 2 MG/ML VIAL 1 MG IV PUSH (09:04)
[2022-12-16 10:53] VITALS: BP 114/51; PULSE 112; RESP 32; TEMP 36.9; O2SAT 90
--- NOTE | 2022-12-16 11:31 | PM.DS ---
DS: Admitting Diagnosis Discharge Date 12/16/22 Admitting Diagnosis CVA DS: Discharge Diagnosis Discharge Diagnosis (1) Acute CVA (cerebrovascular accident): Code(s): I63.9 - Cerebral infarction, unspecified Status: Acute (2) Rhabdomyolysis: Code(s): M62.82 - Rhabdomyolysis Status: Acute (3) Acute UTI: Code(s): N39.0 - Urinary tract infection, site not specified Status: Acute (4) Diabetes mellitus with chronic kidney disease: Qualifiers: Diabetes mellitus type: type 2 Diabetes mellitus terminal press operator insulin use: with terminal press operator use Chronic kidney disease stage: stage 3 (moderate) Chronic kidney disease stage 3 subtype: stage 3a (GFR 45-59) Qualified Code(s): E11.22 - Type 2 diabetes mellitus with diabetic chronic kidney disease; N18.31 - Chronic kidney disease, stage 3a; Z79.4 - marine oil terminal superintendent (current) use of insulin Code(s): E11.22 - Type 2 diabetes mellitus with diabetic chronic kidney disease Status: Acute (5) Pneumonia: Code(s): J18.9 - Pneumonia, unspecified organism Status: Acute (6) Urinary retention: Code(s): R33.9 - Retention of urine, unspecified Status: Acute DS: Summary Hospital Course Hospital Course: Is a 71-year-old male with a past medical history of CKD, COPD, diabetes, hypertension, lung cancer with brain Mets and prostate cancer post prostatectomy the presented to the ED on 12/11/2022 after being found on the floor at his home with gaze deviation, nonverbal, and right upper extremity and right lower extremity weakness his last known well was 2 days prior to ED presentation. CTA of the head neck showing acute infarct involving MCA distribution likely thromboembolic in etiology with 4 mm long nonocclusive central filling defect in distal M1 segment, 25% stenosis of the right carotid bulb, likely near occlusion of the left carotid bulbs in severe greater than 70% stenosis at the origins of the codominant bilateral vertebral arteries. Neurology consulted. power of assistant attorney general ended up opting for comfort measures and hospice. Comfort measures initiated on 12/12/2022. Patient accepted to facility 11/16/2022 will be discharged there to continue hospice care. Time Spent with Patient Time attestation: Total time spent providing and/or coordinating discharge services: Exam Narrative: GENERAL: Comfortable, no acute distress EYES: Conjunctivitis in right eye RESPIRATORY: clear to auscultation CARDIO: RRR GI: Bowel sounds present, nontender SKIN: no rashes EXTREMITIES: no edema, redness or tenderness; Left leg [id number] amputation Discharge Plan Discharge Attending physician on discharge: Martin Avendano Consulting providers: Christina Agudelo Discharging Clinician: Lucila Nagel Patient Disposition: Home, Self-Care Activity: other - see discharge instructions Diet: NPO Discharge Instructions: Discharge in hospice care. Management per hospice team. Patient Instructions: Antibiotic Form, How to Stop Smoking (DC), Stroke (GEN) Stand Alone Forms: General Discharge Information Follow-up/Referrals: Kobe Andrade MD [Primary Care Provider] - Discharge Medications: Discontinued Contour Next Test Strips Strip See Rx Instructions .ROUTE .COMPLEX Qty: 200 1RF Dose Instruction: USE 1 STRIP TO CHECK GLUCOSE TWICE DAILY Rx Instructions: USE 1 STRIP TO CHECK GLUCOSE TWICE DAILY albuterol sulfate 90 mcg/actuation HFA aerosol inhaler 1 inh inhalation Q4H PRN (Reason: shortness of breath or wheezing) Qty: 6.7 1RF (DME) FreeStyle [place] 2 [place] Misc See Rx Instructions .Route Qty: 1 0RF Rx Instructions: As directed (DME) insulin syringes (disposable) 1 mL syringe See Rx Instructions .ROUTE .MEDSUPPLY Qty: 500 1RF Rx Instructions: To use with insulin injection twice daily pregabalin [Lyrica] 150 mg capsule 150 mg PO TID Qty: 90 4RF va
[2022-12-16 12:41] LABS: SARS-CoV-2 RNA PCR Negative (Negative)
== END 2022-12-16 14:30 | disposition hospice, inpatient (51) | DRG 64 ==
LOC: ANHED 14:19 → ANH2MED 17:38
PROVIDERS: Student in an Organized Health Care Education/Training Program; Admitting Provider Hospitalist; Emergency Provider Emergency Medicine; PCP Family Medicine Adolescent Medicine; Visit Provider Internal Medicine Critical Care Medicine
DX: I63.412 Cerebral infarction due to embolism of left middle cerebral artery (principal); J18.9 Pneumonia, unspecified organism; M62.82 Rhabdomyolysis; N39.0 Urinary tract infection, site not specified; G81.91 Hemiplegia, unspecified affecting right dominant side; E11.22 Type 2 diabetes mellitus with diabetic chronic kidney disease; I12.9 Hypertensive chronic kidney disease with stage 1 through stage 4 chronic kidney disease, or unspecified chronic kidney disease; N18.31 Chronic kidney disease, stage 3a; R33.9 Retention of urine, unspecified; E11.42 Type 2 diabetes mellitus with diabetic polyneuropathy; J44.9 Chronic obstructive pulmonary disease, unspecified; E11.65 Type 2 diabetes mellitus with hyperglycemia; E78.5 Hyperlipidemia, unspecified; M79.7 Fibromyalgia; E78.2 Mixed hyperlipidemia; G25.81 Restless legs syndrome; F17.210 Nicotine dependence, cigarettes, uncomplicated; Z66 Do not resuscitate; Z85.46 Personal history of malignant neoplasm of prostate; Z85.841 Personal history of malignant neoplasm of brain; Z85.118 Personal history of other malignant neoplasm of bronchus and lung; Z79.4 Long term (current) use of insulin; R29.725 NIHSS score 25; R47.01 Aphasia
CPT/HCPCS: 36415; 70496; 70498; 71045; 80048; 80053; 81001; 82550; 82948; 85025; 85610; 85730; 87086; 87088; 87635; 92610; 93005; 96361; 96374; 96375; 99285; A9270; G0378; J0456; J0696; J1815; J2060; J2270; J7030; Q9967